=== PATIENT | male | born 1990 | race Two or more races ===

== ENCOUNTER 2017-12-12 00:15 | Emergency (ER) | payer OTHER ==
[2017-12-12 00:49] VITALS: BP 124/81; PULSE 58; TEMP 98.1; BMI 25.8
[2017-12-12] MEDS ORDERED: MAG HYDROX/AL HYDROX/SIMETH 30 ML UNIT-DOSE CUP PO ONE (01:07)
--- NOTE | 2017-12-12 01:07 | PDOC ---
Attending Attestation - HPI HPI: 12/12/17 02:37 The patient is a 27 year old healthy male presenting with lower abdominal pain that began this morning. The patient states the lower abdominal pain is localized in the left lower quadrant, nonradiating and intermittent that resolved in the morning but came back four hours later. Patient reports the lower abdominal pain is exacerbated with bowel movements. Patient denies sick contact or recent travel. The patient denies chest pain, shortness of breath, headache and dizziness. Denies fever, chills, nausea, vomit, diarrhea and constipation. Denies dysuria, frequency, urgency and hematuria. Allergies: NKA Past surgical history: Social history: Occasionally drinks. Smokes a pack per day. Daily marijuana use. <Rosalba Lopez - Last Filed: 12/12/17 02:37> - Resident Resident Name: Damian Tijerina - ED Attending Attestation I have performed the following: I have examined & evaluated the patient, The case was reviewed & discussed with the resident, I agree w/resident's findings & plan - Physicial Exam PE: 12/12/17 03:52 Agree with resident exam - Medical Decision Making 12/12/17 01:55 Labs normal; exam normal. Pt ready for d/c home <Debora Knight - Last Filed: 12/12/17 03:52>
--- NOTE | 2017-12-12 01:14 | PDOC ---
History of Present Illness - General Chief Complaint: Pain, Acute Stated Complaint: ABD PAIN Time Seen by Provider: 12/12/17 00:32 History Source: Patient Exam Limitations: No Limitations - History of Present Illness Initial Comments: 27 y/o male presenting to [facility] ER via private auto complaining of lower abdominal pain. The pain started after waking this morning from a night of reportedly heavy drinking. It was initially localized to the lower right side without radiation. It resolved spontaneously after approx. 1 hour. It then returned after approx. 4 hours and was localized to lower left side again without radiation. Described as fluxuent with brief periods of intensity lasting approx. 5 min every 40-50 minutes. Worse with bowel movement. Endorses single episode of non-bloody loose stool, chills, and possibly diaphoresis. Denies nausea, vomiting, gastric reflux, symptoms, chest pain, palpitations, shortness of breath, or syncope. Endorses drinking heavily last night. Endorses daily marijuana use (2x joints). Endorses smoking a pack a day. Pt denies PMH, PSH, or prescription medications. Past History - Past Medical History Allergies/Adverse Reactions: Allergies Allergy/AdvReac Type Severity Reaction Status Date / Time No Known Allergies Allergy Verified 12/12/17 01:08 Comment:: Genital herpes. - Surgical History Comments:: Pt denies past surgical history. - Suicide/Smoking/Psychosocial Hx Smoking History: Current every day smoker Information on smoking cessation initiated: No Hx Alcohol Use: Yes Drug/Substance Use Hx: Yes (MARIJUANA) Review of Systems - Review of Systems Able to Perform ROS?: Yes Is the patient limited Telugu proficient: No Constitutional: Yes: Chills, Diaphoresis. No: Fever, Loss of Appetite HEENTM: No: Throat Pain, Difficulty Swallowing Respiratory: No: Shortness of Breath Cardiac (ROS): No: Chest Pain, Palpitations, Syncope ABD/GI: Yes: See HPI, Abd. Pain w/ defecation, Abdominal cramping. No: Abdominal Distended, Blood Streaked Bowels, Constipated, Diarrhea, Nausea, Poor Appetite, Poor Fluid Intake, Rectal Bleeding, Vomiting, Indigestion, Tarry Stools : No: Burning, Dysuria, Discharge, Frequency, Flank Pain, Hematuria, Pain, Urgency, Testicular Mass, Testicular Swelling, Lesions, Testicular Pain Musculoskeletal: No: Back Pain Integumentary: No: Rash Neurological: No: Unsteady Gait Hematologic/Lymphatic: No: Easy Bleeding, Easy Bruising *Physical Exam - Vital Signs Last Vital Signs Temp Pulse Resp BP Pulse Ox 98.1 F 58 L 18 124/81 99 12/12/17 00:44 12/12/17 00:44 12/12/17 00:44 12/12/17 00:44 12/12/17 00:44 - Physical Exam Comments: Constitutional: Well-developed, well-nourished, non-toxic male in no acute distress or obvious discomfort. Found semi fowlers in hospital bed. Alert and oriented x4. Answered all questions appropriately and completely. Speech was non -labored, non-pressured. HEENT: Normocephalic. No obvious external signs of trauma. Hearing grossly normal. No nasal discharge. Conjunctiva and oral mucosal membranes moist and not injected. Neck is supple, trachea is midline. Cardiovascular: Regular rate and regular rhythm. No murmur, rubs, clicks, or gallops. Peripheral pulses: Radial pulses full. Respiratory: Equal chest rise and fall. Clear to auscultation bilaterally. No stridor, no wheezing, no rhonchi. Gastrointestinal: abdomen is soft, non-tender, non-distended. No peritoneal signs. No hepatosplenemegaly. No pulsatile masses. No overlying skin lesions or obvious signs of trauma. Male Genital: Genital exam revealed normally developed circumcised male genitalia. No scrotal mass or tenderness, no hernias or inguinal lymphadenopathy. No perineal or perianal abnormalities are seen. No genital lesions or urethral discharge. RN chaperoned exam. Neuro: Alert and oriented. Moving all four extremities spontaneously. Skin: Warm, dry, and intact. No bruising, rashes, or other lesions. No palpable nodules. Multiple tattoos on trunk, none new appearing. : No suprapubic tenderness. No R or L CVA tenderness. Psych: Affect: appropriate. Mood: normal ED Treatment Course - LABORATORY CBC & Chemistry Diagram: 12/12/17 01:10 12/12/17 01:10 Medical Decision Making - Medical Decision Making *Reviewed nursing notes and prior visit documentation. 27 y/o previously healthy male complaining of intermittent lower abdominal pain , first RLQ then LLQ with multiple pain free periods, since waking this morning after a night of heavy drinking. No nausea, vomiting, or diarrhea. Nichols abdomen. No PMH. Afebrile. Vitals unremarkable for hypotension or tachycardia. Physical exam completely benign; no abdominal, suprapubic, CVA, or testicular/ penile tenderness. Low suspicion for appendicitis as pain is now reportedly LLQ without any abdominal tenderness on exam. Low suspicion for hepatitis, cholecystitis, pancreatitis, gastritis given location of pain, benign abdominal exam, and no vomiting. Low suspicion for UTI, pyelonephritis, or nephrolithiasis given location of pain, benign physical exam, and no symptoms or hematuria. Will obtain CBC, CMP, and Lipase. Ordered Maalox for symptom relief. No indication for imaging at this time. CBC, CMP, and Lipase all unremarkable for derangement. Repeat abdominal exam continues to be benign. Pt states he has experienced one more episode while in the department while trying to have a bowel movement. Pain again resolved spontaneously. Suspect symptoms are related to acute enteritis following EtOH abuse. Discussed normal laboratory and physical findings. Answered all questions. Provided return precautions. Pt verbally expressed verbal understanding and agreement with plan to discharge home with outpatient PCP follow up. Referral provided to [facility] resident clinic. Pt instructed to call to make appointment. Pt discharged from department without further incident. *DC/Admit/Observation/Transfer Diagnosis at time of Disposition: Abdominal pain in male - Discharge Dispostion Disposition: HOME Condition at time of disposition: Good Decision to Admit order: No - Referrals Referrals: [facility] [place] [Provider Group] - Patient Instructions Printed Discharge Instructions: DI for Abdominal Pain-Adult Additional Instructions: Your blood work and physical exam were normal today. Continue to drink fluids (water, Gatorade, etc) to stay hydrated. Try using over the counter Pepto Bismol. Follow the package instructions. I have entered a referral for you to see a primary care physician at [facility] [place] primary care clinic. You will need to call to make an appointment in the next 2-4 days. The telephone number is [phone]. The address is: [facility] at [address] [place] [address] Come back to the emergency department if your symptoms worsen or if you feel as though you need additional emergency evaluation. Print Language: KYRGYZ - Post Discharge Activity
[2017-12-12 01:28] LABS: HEMATOCRIT 42.3 % (35.4-49); HEMOGLOBIN 14.5 GM/dL (11.7-16.9); LYMPH % 41.2 % (8-40); MCH 31.5 pg (25.7-33.7); MCHC 34.1 g/dl (32.0-35.9); MEAN CELL VOLUME 92.1 fl (80-96); MEAN PLT VOLUME 7.2 fl (7.5-11.1); NEUT % 48.8 % (42.8-82.8); PLATELET COUNT 230 K/MM3 (134-434); RDW 13.7 % (11.9-15.9); WHITE BLOOD COUNT 7.5 K/mm3 (4.0-10.0)
[2017-12-12 01:52] LABS: ALBUMIN 3.6 g/dl (3.4-5.0); ALK PHOS 93 U/L (45-117); ANION GAP 7 MMOL/L (8-16); BILIRUBIN,TOTAL 0.5 mg/dL (0.2-1.0); BLOOD UREA NITROGEN 14 mg/dL (7-18); CALCIUM 8.6 mg/dL (8.5-10.1); CHLORIDE 106 mmol/L (98-107); CO2 27 mmol/L (21-32); GLUCOSE,RANDOM 95 mg/dL (74-106); LIPASE 88 U/L (73-393); POTASSIUM 3.7 mmol/L (3.5-5.1); SGOT/AST 22 U/L (15-37); SGPT/ALT 29 U/L (12-78); SODIUM 140 mmol/L (136-145); TOT PROT 6.9 g/dl (6.4-8.2)
[2017-12-12] MEDS ORDERED: MAG HYDROX/AL HYDROX/SIMETH 30 ML UNIT-DOSE CUP ONE (01:57)
== END 2017-12-12 02:15 | disposition home or self-care (01) ==
LOC: JER 00:15
DX: R10.30 Lower abdominal pain, unspecified (principal)
CPT/HCPCS: 36415; 80053; 83690; 85025; 99281-25

== ENCOUNTER 2018-02-14 23:48 | Emergency (ER) | payer OTHER ==
[2018-02-15 01:32] VITALS: BP 125/71; PULSE 57; TEMP 98.2; BMI 24.3
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
[2018-02-15] MEDS ORDERED: IBUPROFEN 600 MG TABLET (FP) PO ONE ×2 (02:01→02:47)
== END 2018-02-15 04:21 | disposition home or self-care (01) ==
LOC: JER 23:48
DX: S43.402A Unspecified sprain of left shoulder joint, initial encounter (principal); Y04.0XXA Assault by unarmed brawl or fight, initial encounter; W03.XXXA Other fall on same level due to collision with another person, initial encounter; Y93.89 Activity, other specified; Y92.89 Other specified places as the place of occurrence of the external cause; Y99.8 Other external cause status
CPT/HCPCS: 73030-TC-LT-FY; 99281-25

== ENCOUNTER 2018-07-15 10:46 | Emergency (ER) | payer OTHER ==
[2018-07-15 10:50] VITALS: BP 113/73; PULSE 70; TEMP 97.7; BMI 24.3
--- NOTE | 2018-07-15 11:07 | PDOC ---
History of Present Illness - General Chief Complaint: Colic Stated Complaint: HICCUPS Time Seen by Provider: 07/15/18 11:04 History Source: Patient Exam Limitations: No Limitations Past History - Travel Traveled outside of the country in the last 30 days: No Close contact w/someone who was outside of country & ill: No - Past Medical History Allergies/Adverse Reactions: Allergies Allergy/AdvReac Type Severity Reaction Status Date / Time No Known Allergies Allergy Verified 07/15/18 11:08 Home Medications: Ambulatory Orders Mag Hydrox/Al Hydrox/Simeth [Mylanta Oral Suspension -] 30 ml PO BID #20 cup COPD: No - Suicide/Smoking/Psychosocial Hx Smoking History: Current every day smoker Have you smoked in the past 12 months: Yes Number of Cigarettes Smoked Daily: 4 Information on smoking cessation initiated: No Hx Alcohol Use: No Drug/Substance Use Hx: Yes (marijuana) Review of Systems - Review of Systems Able to Perform ROS?: Yes Comments:: 07/15/18 11:06 CONSTITUTIONAL: Absent: fever, chills, diaphoresis, generalized weakness, malaise, loss of appetite CARDIOVASCULAR: Absent: chest pain, loss of consciousness, palpitations, irregular heart rate, peripheral edema RESPIRATORY: Absent: cough, shortness of breath, dyspnea with exertion, orthopnea, wheezing, stridor, hemoptysis GASTROINTESTINAL: Present: hiccups Absent: abdominal pain, abdominal distension, nausea, vomiting , diarrhea, constipation, melena, hematochezia SKIN: Absent: rash, itching, pallor NEUROLOGIC: Absent: headache, focal weakness or paresthesias, dizziness, unsteady gait, seizure, mental status changes, bladder or bowel incontinence PSYCHIATRIC: Absent: anxiety, depression, suicidal or homicidal ideation, hallucinations. Is the patient limited American proficient: No *Physical Exam - Vital Signs Last Vital Signs Temp Pulse Resp BP Pulse Ox 97.7 F 70 16 113/73 99 07/15/18 10:48 07/15/18 10:48 07/15/18 10:48 07/15/18 10:48 07/15/18 10:48 - Physical Exam Comments: 07/15/18 11:07 GENERAL: Well developed, well nourished. Awake and alert. No acute distress. NECK: Supple. Full ROM. No JVD. Carotid pulses 2+ and symmetric, without bruits. No thyromegaly. No lymphadenopathy. CARDIOVASCULAR: Regular rate and rhythm. No murmurs, rubs, or gallops. Distal pulses are 2+ and symmetric. PULMONARY: No evidence of respiratory distress. Lungs clear to auscultation bilaterally. No wheezing, rales or rhonchi. ABDOMINAL: Soft. Non-tender. Non-distended. No rebound or guarding. No organomegaly. Normoactive bowel sounds. SKIN: Warm and dry. Normal capillary refill. No rashes. No jaundice. NEUROLOGICAL: Alert, awake, appropriate. Cranial nerves 2-12 intact. No deficits to light touch and temperature in face, upper extremities and lower extremities. No motor deficits in the in face, upper extremities and lower extremities. Normoreflexic in the upper and lower extremities. Normal speech. Toes are down- going bilaterally. Gait is normal without ataxia. PSYCHIATRIC: Cooperative. Good eye contact. Appropriate mood and affect. Medical Decision Making - Medical Decision Making 07/15/18 12:15 The patient is a 27-year-old male with no past medical history who presents to the emergency today complaining of hiccups. Patient states that he was diagnosed with a stomach virus on and given Zofran. He states that since the vomiting stopped on he has had hiccups. He states that the hiccups do not keep him up at night; however, when he wakes up in the morning he continues to hiccup. He also states that after eating the hiccups resolved. Patient is not currently hiccuping in the emergency department. Denies nausea, vomiting, fever, chest pain and difficulty breathing. A/P: Hiccups Patient is not currently hiccuping in the emergency department. Denies chest pain. Chest x-ray ordered, diaphragm appears normal. Mylanta given with relief of symptoms. Discharge home with Mylanta and GI follow-up. I discussed the physical exam findings, ancillary test results and final diagnoses with the patient. I answered all of the patient's questions. The patient was satisfied with the care received and felt comfortable with the discharge plan and treatment plan. The Patient agrees to follow up with the primary care physician/specialist within 24-72 hours. Return precautions were given. *DC/Admit/Observation/Transfer Diagnosis at time of Disposition: Hiccups - Discharge Dispostion Disposition: HOME Condition at time of disposition: Stable Decision to Admit order: No - Prescriptions Prescriptions: Mag Hydrox/Al Hydrox/Simeth [Mylanta Oral Suspension -] 30 ml PO BID #20 cup - Referrals Referrals: Froylan Cordero MD [Staff Physician] - - Patient Instructions Printed Discharge Instructions: DI for Hiccups Additional Instructions: You were evaluated for hiccups Take the Mylanta twice a day Avoid carbonated beverages Your chest x-ray was normal If your symptoms do not resolve, please follow up with gastroenterology. A referral has been provided Return to the ER for any new or worsening symptoms - Post Discharge Activity Forms/Work/School Notes: Back to Work
[2018-07-15] MEDS ORDERED: MAG HYDROX/AL HYDROX/SIMETH 30 ML UNIT-DOSE CUP PO ONE (11:17)
[2018-07-15] MEDS ORDERED: MAG HYDROX/AL HYDROX/SIMETH 30 ML UNIT-DOSE CUP ONE (11:20)
== END 2018-07-15 11:58 | disposition home or self-care (01) ==
LOC: JERFT 10:46
DX: R06.6 Hiccough (principal); F17.210 Nicotine dependence, cigarettes, uncomplicated
CPT/HCPCS: 71046-TC-FY; 99281-25

== ENCOUNTER 2018-08-19 04:09 | Emergency (ER) | payer OTHER ==
[2018-08-19 04:37] VITALS: BP 110/78; PULSE 58; TEMP 97.9; BMI 22.9
--- NOTE | 2018-08-19 04:53 | PDOC ---
History of Present Illness - General Chief Complaint: Nausea Stated Complaint: HICCUPS Time Seen by Provider: 08/19/18 04:18 History Source: Patient Exam Limitations: No Limitations - History of Present Illness Initial Comments: 08/19/18 04:50 27M with no PMH who presents to the ER with complaints of hiccups. The patient states that he took 5 percocet pills "as an experiment" and then developed hiccups that have been consistent and throughout the night for 3 days. He denies CP, SOB, fever, chills, cough, nausea, vomiting. He states that he had similar symptoms which self resolved at the end of June 2018, where he was seen in our ED. Past History - Past Medical History Allergies/Adverse Reactions: Allergies Allergy/AdvReac Type Severity Reaction Status Date / Time No Known Allergies Allergy Verified 07/15/18 11:08 Home Medications: Ambulatory Orders NK [No Known Home Medication] 08/19/18 COPD: No Other medical history: denies - Immunization History Immunization Up to Date: Yes - Suicide/Smoking/Psychosocial Hx Smoking History: Current every day smoker Have you smoked in the past 12 months: Yes Number of Cigarettes Smoked Daily: 2 Information on smoking cessation initiated: Yes Hx Alcohol Use: Yes Drug/Substance Use Hx: Yes (Marijuana) Review of Systems - Review of Systems Comments:: 08/19/18 04:52 GENERAL/CONSTITUTIONAL: + for hiccups. No fever or chills. No weakness. HEAD, EYES, EARS, NOSE AND THROAT: No change in vision. No ear pain or discharge. No sore throat. CARDIOVASCULAR: No chest pain, palpitations, or lightheadedness. RESPIRATORY: No cough, wheezing, shortness of breath, or hemoptysis. GASTROINTESTINAL: No nausea, vomiting, diarrhea, constipation, or abdominal pain. *Physical Exam - Vital Signs Last Vital Signs Temp Pulse Resp BP Pulse Ox 97.9 F 58 L 18 110/78 98 08/19/18 04:33 08/19/18 04:33 08/19/18 04:33 08/19/18 04:33 08/19/18 04:33 - Physical Exam Comments: 08/19/18 04:52 GENERAL: Well developed, well nourished. Awake and alert. No acute distress. HEENT: Normocephalic, atraumatic. Hearing grossly normal. Moist mucous membranes. PERRLA, EOMI. No conjunctival pallor. Sclera are non-icteric. NECK: Supple. Full ROM. No JVD. CARDIOVASCULAR: Regular rate and rhythm. No murmurs, rubs, or gallops. PULMONARY: No evidence of respiratory distress. Lungs clear to auscultation bilaterally. No wheezing, rales or rhonchi. ABDOMINAL: Soft. Non-tender. Non-distended. No rebound or guarding. No organomegaly. Normoactive bowel sounds. MUSCULOSKELETAL: Normal range of motion at all joints. No bony deformities or tenderness. SKIN: Warm and dry. Normal capillary refill. No rashes. No jaundice. NEUROLOGICAL: Alert, awake, appropriate. Cranial nerves 2-12 grossly intact. Normal speech. Gait is normal without ataxia. PSYCHIATRIC: Cooperative. Good eye contact. Appropriate mood and affect. Medical Decision Making - Medical Decision Making 08/19/18 04:52 27M with no PMH who presents with 3 days of hiccups. Breathing techniques attempted at bedside. Will reassess. 08/19/18 04:55 Pt has not had hiccups since breathing exercise. Will d/c with PCP f/u. *DC/Admit/Observation/Transfer Diagnosis at time of Disposition: Hiccups - Discharge Dispostion Disposition: HOME Condition at time of disposition: Stable Decision to Admit order: No - Referrals Referrals: [facility] [place] [Provider Group] - Patient Instructions Printed Discharge Instructions: DI for Hiccups Additional Instructions: Your ER visit is not complete until your follow up with your primary care physician. Please follow up with your primary care physician in 1-2 days. Repeat the breathing exercises if your hiccups come back. Please return to the ER if you have any signs or symptoms of chest pain, shortness of breath, uncontrollable fever, chills, nausea, vomiting, numbness, tingling, or weakness in any part of your body, changes in vision, or slurred speech. Please return to the ER if symptoms persist, worsen, or new symptoms arise. - Post Discharge Activity
--- NOTE | 2018-08-19 05:10 | PDOC ---
Attending Attestation - Resident Resident Name: Darrin Chavarria - ED Attending Attestation I have performed the following: I have examined & evaluated the patient, The case was reviewed & discussed with the resident, I agree w/resident's findings & plan - HPI HPI: 08/19/18 05:05 Pt comes with intractable hiccups x 3 days. Hiccups stop when he eats and they return 30 min after meals. Now in the ER hiccups have resolved. Pt has no fevers or chills. He lost 4 lbs over the last 2- 4 months. No abd pain and no flank pain and no weakness. - Physicial Exam PE: 08/19/18 05:07 Agree with resident exam. No positive findings. lungs clear; abd soft NT ND. - Medical Decision Making 08/19/18 05:09 Pt is stable for d/c. He was advised to follow with GI for endoscopy if the hiccups return. He understands the possibility that a GI tumor could cause hiccups. Pt advised to quit smoking.
== END 2018-08-19 05:04 | disposition home or self-care (01) ==
LOC: JER 04:09
DX: R06.6 Hiccough (principal)
CPT/HCPCS: 99281-25

== ENCOUNTER 2018-11-12 08:31 | Emergency (ER) | payer OTHER | END 2018-11-12 10:39 | disposition home or self-care (01) | LOC: JERFT 08:31 ==

== ENCOUNTER 2019-01-28 14:24 | Emergency (ER) | payer OTHER ==
[2019-01-28 14:34] VITALS: BP 110/64; PULSE 58; TEMP 98.6; BMI 23.7
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
[2019-01-28] MEDS ORDERED: METHOCARBAMOL 500 MG TABLET PO ONE (15:25)
[2019-01-28] MEDS ORDERED: METHOCARBAMOL 500 MG TABLET ONE (15:29)
== END 2019-01-28 15:34 | disposition home or self-care (01) ==
LOC: JERFT 14:24
DX: M62.830 Muscle spasm of back (principal); V43.52XA Car driver injured in collision with other type car in traffic accident, initial encounter; Y92.414 Local residential or business street as the place of occurrence of the external cause; Y93.89 Activity, other specified; Y99.8 Other external cause status
CPT/HCPCS: 72070-TC-FY; 72100-TC-FY; 99281-25